=== PATIENT | female | born 1950 | race Caucasian/White ===

== ENCOUNTER → 2018-03-05 | Outpatient (CLI) | payer MEDICARE ==
--- NOTE | 2018-03-06 10:07 | US ---
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 No pain. No spotting. TECHNIQUE: Transabdominal (TA). Transabdominal sonographic images of the pelvis were acquired. Date of LMP: BUTTON PUSHER, EXAM MEASUREMENTS: Uterus: 6.4 x 4.3 x 2.9 cm Endometrial Stripe: 0.3 cm Right Ovary: 2.8 x 1.8 x 1.2 cm Left Ovary: 2.6 x 1.4 x 1.2 cm 1. Uterus: Anteverted Heterogenous. 2. Endometrium: wnl 3. Right Ovary: wnl 4. Left Ovary: wnl 5. Bilateral Adnexa: wnl 6. Posterior cul-de-sac: no free fluid IMPRESSION: Unremarkable exam with no evidence of endometrial thickening. If there is postmenopausal bleeding direct visualization would still be recommended.
--- NOTE | 2018-03-06 10:08 | US ---
EXAMINATION TYPE: US renals and bladder DATE OF EXAM: 03/05/2018 COMPARISON: NONE CLINICAL HISTORY: R13.21 asymptomatic tiffany hematuria. No pain. EXAM MEASUREMENTS: Right Kidney: 10.3 x 5.6 x 4.2 cm Left Kidney: 10.5 x 4.6 x 4.0 cm Limited exam due to patient body habitus Right Kidney: No hydronephrosis or masses seen Left Kidney: Dromedary hump seen Bladder: wnl, distended Bilateral Jets seen There is no evidence for hydronephrosis at this point in time. No nephrolithiasis is seen. No rowan s are identified. The urinary bladder is anechoic. Bilateral ureteral jets are seen. IMPRESSION: No sonographic evidence of nephrolithiasis or hydronephrosis. Exam is mildly limited secondary to pat ient body habitus.
== END | disposition home or self-care (01) ==
LOC: RADUSWWP 15:25
PROVIDERS: ATTEND Family Medicine
DX: R31.29 Other microscopic hematuria (principal)
CPT/HCPCS: 76770; 76856

== ENCOUNTER → 2018-03-31 | Outpatient (CLI) | payer MEDICARE ==
--- NOTE | 2018-04-02 08:43 | MM ---
Reason for exam: screening (asymptomatic). Last mammogram was performed 3 years and 2 months ago. History: Patient is postmenopausal. Family history of breast cancer in paternal cousin at age 57. Benign excisional biopsy of the right breast, 1993. Took hormonal contraceptives for 1 year. Physical Findings: A clinical breast exam by your physician is recommended on an annual basis and results should be correlated with mammographic findings. MG 3D Screening Mammo W/Cad Bilateral CC and MLO view(s) were taken. Prior study comparison: January 19, 2015, mammogram, performed at [place]. January 29, 2006, mammogram, performed at [place]. There are scattered fibroglandular densities. There is chronic nodularity in the right breast. No significant changes when compared with prior studies. ASSESSMENT: Negative, BI-RAD 1 RECOMMENDATION: Routine screening mammogram of both breasts in 1 year.
== END ==
LOC: RADMAMWWP 08:15
PROVIDERS: ATTEND Family Medicine
DX: Z12.31 Encounter for screening mammogram for malignant neoplasm of breast (principal)
CPT/HCPCS: 77063; 77067

== ENCOUNTER → 2020-06-05 | Outpatient (CLI) | payer MEDICARE ==
--- NOTE | 2020-06-06 13:55 | MM ---
Reason for exam: screening (asymptomatic). Last mammogram was performed 2 years and 2 months ago. History: Patient is postmenopausal. Family history of breast cancer in paternal cousin at age 57. Benign excisional biopsy of the right breast, 1993. Took hormonal contraceptives for 1 year. Physical Findings: A clinical breast exam by your physician is recommended on an annual basis and results should be correlated with mammographic findings. MG 3D Screening Mammo W/Cad Bilateral CC and MLO view(s) were taken. Prior study comparison: March 31, 2018, bilateral MG 3d screening mammo w/cad. January 19, 2015, mammogram, performed at [place]. There are scattered fibroglandular densities. There is no discrete abnormality. No significant changes when compared with prior studies. ASSESSMENT: Negative, BI-RAD 1 RECOMMENDATION: Routine screening mammogram of both breasts in 1 year.
== END | disposition home or self-care (01) ==
LOC: RADMAMWWP 16:22
PROVIDERS: ATTEND Family Medicine
DX: Z12.31 Encounter for screening mammogram for malignant neoplasm of breast (principal)
CPT/HCPCS: 77063; 77067